=== PATIENT | female | born 1960 | race Caucasian/White ===

== ENCOUNTER 2022-01-30 09:31 | Inpatient (IN) | payer MEDICARE ==
[~2022-01-30] VITALS: Ht 157.5 cm; Wt 106.8 kg
[2022-01-30 10:01] LABS: BASO # 0.1 K/mm3 (0.0-0.2); BASO % 0.3 % (0.0-2.0); EOS % 0.3 % (0.0-4.0); GRAN % 78.5 % (42.2-75.2); HEMATOCRIT 51.5 % (37.0-47.0); LYMPH # 2.1 K/mm3 (1.2-3.4); LYMPH % 13.8 % (20.0-51.0); MEAN CELL VOLUME 97 fl (80.0-100.0); MEAN CORPUSCULAR HEMOGLOBIN 32 pg (27-31); MEAN CORPUSCULAR HGB CONC 33 g/dl (33.0-37.0); MEAN PLATELET VOLUME 9.5 fl (7.4-10.4); MONO % 6.5 % (1.7-9.3); PLATELET COUNT 242 K/mm3 (130-400); REDCELL DISTRIBUTION WIDTH-CV 13.5 % (11.5-14.5)
[2022-01-30 10:15] LABS: ANION GAP 13 mmol/L (7-16); BLOOD UREA NITROGEN 23 mg/dL (10-20); CALCIUM 9.4 mg/dL (8.4-10.2); CARBON DIOXIDE 30 mmol/L (23-31); CHLORIDE 92 mmol/L (98-107); CREATININE, serum 0.98 mg/dL (0.57-1.11); GLUCOSE 145 mg/dL (70-99); POTASSIUM 3.4 mmol/L (3.5-4.5); SODIUM 135 mmol/L (136-145)
[2022-01-30 10:30] LABS: TROPONIN-I < 0.010 ng/mL (0.00-0.033)
[2022-01-30 16:30] VITALS: BP 126/62; PULSE 78
--- NOTE | 2022-01-30 16:30 | NUR ---
PATIENT ARRIVED FROM ER BY WHEELCHAIR. AMBULATED TO BED WITH PITO CANES. PLESANT, NO COMPLAINTS OF PAIN. ADMISSION ASSESSMENT COMPLETED, MED REC COMPLETED, COVID AND INFECTIOUS DISEASE PROFILE COMPLETED. PATIENT RESTING COMFORTABLY IN BED.
[2022-01-30] MEDS ORDERED: PROZAC 20MG20 MG PO (16:33)
[2022-01-30] MEDS ORDERED: HYDRODIURIL50 MG PO (16:34)
[2022-01-30] MEDS ORDERED: COLESTID 1GM1 G PO (16:36)
[2022-01-30] MEDS ORDERED: MOBIC15 MG PO (16:37)
[2022-01-30] MEDS ORDERED: NORCO 325 MG-101 TAB PO (16:38)
[2022-01-30] MEDS ORDERED: ROBAXIN 50500 MG/TAB PO (16:41)
[2022-01-30] MEDS ORDERED: ASPIRIN E.C. 8181 MG PO (16:42)
[2022-01-30] MEDS ORDERED: RT ADVAIR 228 DISKUS IH (16:46)
[2022-01-30] MEDS ORDERED: COMBIRESP IH (16:50)
--- NOTE | 2022-01-30 17:07 | NUR ---
PATIENT DRESSED AND PLACED ON HOME O2 BOTTLE AT 3L. LEFT FACILITY, REVIEWED LABS, SAW BLOOD SUGAR WAS 53, NOTIFIED PATIENT SON (WHO IS TRANSPORTING PATIENT TO [facility]), PATIENT INSTRUCTED AND AGREED TO STOP FOR DINNER ON THE WAY TO [facility].
--- NOTE | 2022-01-30 18:26 | NUR ---
1800 PLACED 20G IN LEFT FOREARM, REMOVED RIGHT AC. PATIENT ORDERED DINNER. CANES, CALLBELL, AND PHONE BEDSIDE. RESTING PEACEFULLY.
[2022-01-30 19:45] VITALS: BP 127/44; PULSE 91; TEMP 98.9
[2022-01-30 22:17] LABS: PH 5 (5-8); URINE APPEARANCE Hazy (CLEAR/HAZY); URINE BACTERIA None Seen /hpf (NONE SEEN); URINE BILIRUBIN Negative (NEGATIVE); URINE BLOOD 1+ (NEGATIVE); URINE COLOR Yellow (YELLOW); URINE GLUCOSE Negative (NEGATIVE); URINE KETONE Negative (NEGATIVE); URINE LEUKOCYTE ESTERASE Negative (NEGATIVE); URINE NITRATE Negative (NEGATIVE); URINE PROTEIN(semi-quant) Negative (NEGATIVE); URINE RBC 0-2 /hpf (0-2); URINE UROBILINOGEN Negative (NEGATIVE)
[2022-01-30 22:44] LABS: COLLECTION METHOD CLEAN CATCH
[2022-01-31] VITALS (7 sets, daily range): BP systolic 105–150; BP diastolic 45–97; PULSE 71–102; TEMP 97.4–98.6
--- NOTE | 2022-01-31 04:39 | NUR ---
PT HAD UNEVENTFUL NIGHT THIS SHIFT, PT VSS, 02 REMAINS 4L NC, MEDICATIONS ADMINISTERED ORDERED. ALL NEEDS ME THIS SHIFT. CALL LIGHT WTIHIN REACH.
[2022-01-31 06:19] LABS: BASO % 0.1 % (0.0-2.0); GRAN # 13.5 K/mm3 (1.4-6.5); GRAN % 87.8 % (42.2-75.2); HEMATOCRIT 43.3 % (37.0-47.0); LYMPH # 1.2 K/mm3 (1.2-3.4); LYMPH % 7.7 % (20.0-51.0); MEAN CELL VOLUME 95 fl (80.0-100.0); MEAN CORPUSCULAR HEMOGLOBIN 32 pg (27-31); MEAN CORPUSCULAR HGB CONC 34 g/dl (33.0-37.0); MEAN PLATELET VOLUME 10.1 fl (7.4-10.4); MONO # 0.6 K/mm3 (0.1-0.6); MONO % 3.6 % (1.7-9.3); PLATELET COUNT 219 K/mm3 (130-400); RED BLOOD COUNT 4.54 M/mm3 (4.10-5.30); REDCELL DISTRIBUTION WIDTH-CV 13.2 % (11.5-14.5)
[2022-01-31 06:38] LABS: HEMOGLOBIN 14.7 g/dl (12.5-16.0)
[2022-01-31 06:52] LABS: CALCIUM 8.9 mg/dL (8.4-10.2); CREATININE, serum 0.83 mg/dL (0.57-1.11); MAGNESIUM 2.1 mg/dL (1.6-2.6)
--- NOTE | 2022-01-31 08:39 | NUR ---
Scheduled medications given. Shift assessment performed. Patient currently requiring 4.5 L of O2 via nasal cannula. Dyspnea upon exertion noted. Patient denies any pain, discomfort, SOA, or further needs at this time. VSS. Patient A&O. Call light in reach.
--- NOTE | 2022-01-31 14:26 | NUR ---
CHERYL met with the pt to complete intake. The pt lives at home with spouse, Jose, [phone]. The pt is independent on all ADLS, but does use a cane and neblizer. The pt pcp is Dr. Vargas and sharon alba from [facility]. The pt does not have a DPOA-HC and is not interested in one at this time. DC: Home
--- NOTE | 2022-01-31 15:39 | NUR ---
PRN medication given for aching "bottom" pain rated an 8/10.
--- NOTE | 2022-01-31 18:17 | NUR ---
Patient has had an ok day. VSS. Patient A&O. States that the pain in her bottom is at a manaeagble level at this time. Currently on RA. Patient denies any further pain, discomfort, SOA, or further needs at this time. Call light in reach.
[2022-02-01 04:00] VITALS: BP 137/58; PULSE 70; TEMP 98.1
--- NOTE | 2022-02-01 05:36 | NUR ---
PT HAD UNEVENTFUL NIGHT THIS SHIFT. PT REMAINS ON . 02 SATURATIONS ABOVE 92 PERCENT. LUNGS REMAINS DIMINISHED. ALL NEEDS MET THIS SHIFT. CALL LIGHT WITHIN REACH.
[2022-02-01 06:13] LABS: BASO % 0.1 % (0.0-2.0); GRAN # 15.2 K/mm3 (1.4-6.5); GRAN % 83.4 % (42.2-75.2); HEMATOCRIT 44.3 % (37.0-47.0); HEMOGLOBIN 15.1 g/dl (12.5-16.0); LYMPH # 1.8 K/mm3 (1.2-3.4); LYMPH % 9.7 % (20.0-51.0); MEAN CELL VOLUME 95 fl (80.0-100.0); MEAN CORPUSCULAR HEMOGLOBIN 32 pg (27-31); MEAN CORPUSCULAR HGB CONC 34 g/dl (33.0-37.0); MONO % 5.7 % (1.7-9.3); PLATELET COUNT 258 K/mm3 (130-400); RED BLOOD COUNT 4.69 M/mm3 (4.10-5.30); REDCELL DISTRIBUTION WIDTH-CV 13.1 % (11.5-14.5)
[2022-02-01 06:33] LABS: CALCIUM 8.7 mg/dL (8.4-10.2); CREATININE, serum 0.79 mg/dL (0.57-1.11); POTASSIUM 4.2 mmol/L (3.5-4.5)
[2022-02-01 07:12] VITALS: BP 143/75; PULSE 86; TEMP 98.3
[2022-02-01] MEDS ORDERED: MUCINEX 60600 MG/TA1 PO (10:11)
[2022-02-01] MEDS ORDERED: PREDNISONE20 MG PO (10:13)
[2022-02-01] MEDS ORDERED: OXYGEN (10:32)
--- NOTE | 2022-02-01 10:34 | NUR ---
PT RESTING IN BED. MORNING MEDICATIONS GIVEN. SHIFT ASSESSMENT COMPLETED. PT DENIES ANY PAIN OR SOB AT REST. CURRENTLY ON ROOM AIR WHEN RESTING. UPDATED ON POC. WILL CONTINUE TO MONITOR.
--- NOTE | 2022-02-01 11:09 | NUR ---
SW informed that patient would be DCing to her home on this day and would need assistance with setting up O2 at her home. SW spoke to patient and patient chose [facility] to obtain oxygen services. Documentation faxed to agency, [employer]eles[employer] representative stated he would be bringing up oxygen needed for patient.
--- NOTE | 2022-02-01 12:04 | NUR ---
DISCHARGE INSTRUCTIONS GIVEN. ALL QUESTIONS ANSWERED. D/C IV. PT DRESSED AND PACKED BELONGINGS. WAITING FOR HOME OXYGEN TO ARRIVE BEFORE DISCHARGING.
--- NOTE | 2022-02-01 13:03 | NUR ---
PT ESCORTED OFF OF UNIT. WILL D/C FROM SYSTEM.
== END 2022-02-01 13:03 | disposition home or self-care (01) | DRG 189 ==
LOC: COL.ER 09:31 → MEDICAL 13:39
PROVIDERS: Emergency Medicine; Physician Assistant; ADMIT Internal Medicine
DX: J96.01 Acute respiratory failure with hypoxia (principal); J44.1 Chronic obstructive pulmonary disease with (acute) exacerbation; J44.0 Chronic obstructive pulmonary disease with (acute) lower respiratory infection; F17.210 Nicotine dependence, cigarettes, uncomplicated; M81.0 Age-related osteoporosis without current pathological fracture; I10 Essential (primary) hypertension; F32.A Depression, unspecified; J20.9 Acute bronchitis, unspecified; E87.6 Hypokalemia
CPT/HCPCS: 99222-AI; 99232-AI; 99238; A9284; J0696; J1650; J2405; J2920; J7512; Q9967

== ENCOUNTER → 2022-07-27 | Outpatient (CLI) | payer MEDICARE ==
[~2022-07-27] MED LIST: ASPIRIN E.C. 8181 MG PO; COLESTID 1GM1 G PO; COMBIRESP IH; HYDRODIURIL50 MG PO; MOBIC15 MG PO; MUCINEX 60600 MG/TA1 PO; NORCO 325 MG-101 TAB PO; OXYGEN; PREDNISONE20 MG PO; PROZAC 20MG20 MG PO; ROBAXIN 50500 MG/TAB PO; RT ADVAIR 228 DISKUS IH
== END ==
LOC: COL.RAD 07-21 08:00
DX: M25.552 Pain in left hip (principal)
CPT/HCPCS: J3301; Q9967

== ENCOUNTER 2023-12-22 13:30 | Inpatient (IN) | payer OTHER, MEDICAID ==
[~2023-12-22] VITALS: Ht 157.5 cm; Wt 115.0 kg
[~2023-12-22 13:30] MED LIST changes: +ASPIRIN 81M81 MG/TA2 PO; +BREZTRI AEROS10.7 GM IH; +GLUCOPHAGE XR500 M1 PO; +LIPITOR20 MG PO; +LYRICA225 MG PO; +NORCO 325 MG-51 TAB PO; +NORVASC 5MG5 MG/TAB PO; +OMNICEF 300MG300 MG PO; +PROZAC40 MG PO; +RYBELSUS7 MG PO; +VITAMIND3 5000 PO
[2023-12-22] MEDS ORDERED: NS 500 ML IV ONE (13:45)
[2023-12-22 13:56] LABS: BASO # 0.1 K/mm3 (0.0-0.2); BASO % 0.5 % (0.0-2.0); EOS % 0.1 % (0.0-4.0); GRAN # 8.8 K/mm3 (1.4-6.5); GRAN % 81.5 % (42.2-75.2); HEMOGLOBIN 15.4 g/dl (12.5-16.0); LYMPH # 0.9 K/mm3 (1.2-3.4); LYMPH % 8.2 % (20.0-51.0); MEAN CELL VOLUME 100 fl (80.0-100.0); MEAN CORPUSCULAR HEMOGLOBIN 31 pg (27-31); MEAN CORPUSCULAR HGB CONC 31 g/dl (33.0-37.0); MEAN PLATELET VOLUME 10.4 fl (7.4-10.4); MONO % 9.4 % (1.7-9.3); PLATELET COUNT 176 K/mm3 (130-400); REDCELL DISTRIBUTION WIDTH-CV 14.2 % (11.5-14.5)
[2023-12-22 14:15] LABS: ALBUMIN 3.8 gm/dL (3.4-4.8); BILIRUBIN,TOTAL 0.8 mg/dL (0.2-1.2); C-REACTIVE PROTEIN 3.85 mg/dL (0.00-0.50); CALCIUM 9.8 mg/dL (8.4-10.2); CREATININE, serum 0.95 mg/dL (0.57-1.11); POTASSIUM 4.5 mmol/L (3.5-4.5); TOTAL PROTEIN 7.2 gm/dL (6.2-8.1)
[2023-12-22] MEDS ORDERED: Pantoprazole 40 MG in NS 10 ML IV ONE (14:45)
[2023-12-22] MEDS ORDERED: Famotidine 20 MG TAB PO ONE (14:45)
[2023-12-22] MEDS ORDERED: Albuterol 0.083% Neb Soln 2.5 MG/3 ML UD IH ONE (15:00)
[2023-12-22] MEDS ORDERED: Oseltamivir 75 MG CAP PO SCH (15:10)
[2023-12-22] MEDS ORDERED: Budesonide/Glycopyrrolate/Formoterol **** subs to Budesonide + Umeclid/Vilant IH SCH (15:12)
[2023-12-22] MEDS ORDERED: Polyethylene Glycol 3350 17 GM PDS PO PRN (15:15)
[2023-12-22] MEDS ORDERED: Acetaminophen 500 MG TAB PO PRN (15:15)
[2023-12-22] MEDS ORDERED: Ondansetron 4 MG/2 ML VIAL IV PRN (15:15)
[2023-12-22] MEDS ORDERED: HYDROcodone/Acetaminophen 10-325 MG TAB PO PRN (15:15)
[2023-12-22] MEDS ORDERED: Docusate Sodium 100 MG CAP PO PRN (15:15)
[2023-12-22] MEDS ORDERED: dexAMETHasone 4 MG/ML VIAL IV SCH (15:15)
[2023-12-22] MEDS ORDERED: COZAAR 25MG25 MG/TAB PO (15:33)
[2023-12-22] MEDS ORDERED: Dextrose 50% Water 25 GM/50 ML SYRINGE IV PRN (16:15)
[2023-12-22] MEDS ORDERED: Dextrose (Glucose) 15 GM (4 x 3.75 GM) Chewable TABLET PACK PO PRN (16:15)
[2023-12-22] MEDS ORDERED: Glucagon 1 MG VIAL IM PRN (16:15)
[2023-12-22 16:44] VITALS: BP 128/47; PULSE 91; TEMP 100.2
[2023-12-22] MEDS ORDERED: Insulin Aspart (NovoLOG) SQ SCH (17:00)
--- NOTE | 2023-12-22 17:02 | NUR ---
Patient arrived to the medical unit, alert and oriented x 4, getting 2 L o2 Oxymasc. Reporst she has a headache, runnynose, SOB and nausea. Pt was brought by bed, she transfer herself to the bed in the room. Assessment intake completed.
[2023-12-22 17:32] VITALS: BP_SYST 128
[2023-12-22 17:48] LABS: URINE APPEARANCE CLEAR (CLEAR/HAZY); URINE BLOOD NEGATIVE (NEGATIVE); URINE COLOR YELLOW (YELLOW); URINE GLUCOSE NEGATIVE (NEGATIVE); URINE KETONE TRACE (NEGATIVE); URINE NITRATE NEGATIVE (NEGATIVE); URINE PROTEIN(semi-quant) NEGATIVE (NEGATIVE)
[2023-12-22 17:56] LABS: COLLECTION METHOD CLEAN CATCH
--- NOTE | 2023-12-22 18:52 | NUR ---
Report given to SIMEON Flores.
[2023-12-22] MEDS ORDERED: Budesonide Neb Susp 0.5 MG/2 ML AMP IH SCH (19:00)
[2023-12-22 19:19] VITALS: BP 128/60; PULSE 85; TEMP 98.8
--- NOTE | 2023-12-22 19:28 | NUR ---
PT FOUND ON RA SATTING MID 70S TO LOW 80S WITH OXYMASK SITTING LAYING BY PT'S HEAD. PT STATED THAT SHE "TOOK THE MASK OFF BECAUSE IT WAS WET. 3LPM VIA NC PLACED, PT NOW SATTING 92%.
[2023-12-22] MEDS ORDERED: Albuterol/Ipratropium 3 MG-0.5 MG/3 ML Neb Soln IH SCH (20:00)
[2023-12-22 20:10] VITALS: BP_SYST 128
--- NOTE | 2023-12-22 20:38 | NUR ---
Patient assessed around 2009. Alert and oriented, and able to make needs known. Denies having pain and discomfort. Peripheral INT to left forearm. RT reported that patient had taken her oxymask off, and was at 70s-80s on room air. Placed on oxygen at 3 L/min via NC. Asked patient about why she had taken off OM, and stated it was because it was making her hair wet. Patient did have a fever earlier and was given APAP, and fever broke. Explained to patient that was most likely why it was wet, she was sweating. Voices no questions, needs, or concerns at this time. In bed with call light within reach. High fall risk precautions in place. Bed alarm on.
[2023-12-22] MEDS ORDERED: Famotidine 20 MG TAB PO SCH (21:00)
[2023-12-22 23:20] VITALS: BP 155/86; PULSE 84; TEMP 98.8
[2023-12-23] VITALS (12 sets, daily range): BP systolic 97–160; BP diastolic 47–78; PULSE 64–81; TEMP 98.1–99.4
--- NOTE | 2023-12-23 05:35 | NUR ---
Continues on oxygen at 3 L/min via NC. Reports breathing is much better. Afebrile this shift. Voices no questions, needs, or concerns at this time. In bed with call light within reach. High fall risk precautions in place. Bed alarm on.
[2023-12-23 06:45] LABS: BASO % 0.4 % (0.0-2.0); GRAN # 6.2 K/mm3 (1.4-6.5); GRAN % 83.7 % (42.2-75.2); HEMATOCRIT 48.2 % (37.0-47.0); HEMOGLOBIN 15.2 g/dl (12.5-16.0); LYMPH # 0.6 K/mm3 (1.2-3.4); LYMPH % 8.7 % (20.0-51.0); MEAN CELL VOLUME 97 fl (80.0-100.0); MEAN CORPUSCULAR HEMOGLOBIN 31 pg (27-31); MEAN CORPUSCULAR HGB CONC 32 g/dl (33.0-37.0); MEAN PLATELET VOLUME 10.4 fl (7.4-10.4); MONO # 0.5 K/mm3 (0.1-0.6); MONO % 6.9 % (1.7-9.3); PLATELET COUNT 161 K/mm3 (130-400); RED BLOOD COUNT 4.99 M/mm3 (4.10-5.30); REDCELL DISTRIBUTION WIDTH-CV 13.9 % (11.5-14.5)
[2023-12-23 07:03] LABS: CALCIUM 9.4 mg/dL (8.4-10.2); CREATININE, serum 0.87 mg/dL (0.57-1.11); POTASSIUM 4.8 mmol/L (3.5-4.5)
[2023-12-23] MEDS ORDERED: Atorvastatin 20 MG TAB PO SCH (09:00)
[2023-12-23] MEDS ORDERED: Pregabalin 75 MG CAP PO SCH (09:00)
[2023-12-23] MEDS ORDERED: Umeclidinium/Vilanterol 62.5-25 MCG INHALATION/INHALER IH SCH (09:00)
[2023-12-23] MEDS ORDERED: amLODIPine 5 MG TAB PO SCH (09:00)
[2023-12-23] MEDS ORDERED: Losartan 25 MG TAB PO SCH (09:00)
[2023-12-23] MEDS ORDERED: FLUoxetine 20 MG CAP PO SCH (09:00)
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
--- NOTE | 2023-12-23 14:11 | NUR ---
Jun[employer] Teacher received email correspondence from patient's case Eliana patel who advised patient is on the physical disability waiver and has in home services through [facility]. Eliana advised she was told by [facility] they recently hired a new caregiver who will start with patient next week.
--- NOTE | 2023-12-23 20:53 | NUR ---
Patient assessed around 2009. Alert and oriented, and able to make needs known. Denies having pain and discomfort. Had taken shower. Was on room air during assessment. SPO2 85%. Put back on oxygen at 2 L/min via NC. Increased to 88%. Increased oxygen at 3 L/min via NC. RT updated. Denies SOB and dyspnea. Non-productive cough. LS expiratory wheezes. HRR. BSAx4. Peripheral INT to left forearm. Voices no questions, needs, or concenrs at this time. In bed with call light within reach. High fall risk precautions in place. Bed alarm on. Droplet precautions continue.
[2023-12-24] VITALS (12 sets, daily range): BP systolic 104–161; BP diastolic 48–65; PULSE 57–77; TEMP 97.8–98.8
[2023-12-24] MEDS ORDERED: guaiFENesin Oral Soln 200 MG/10 ML UD PO PRN (02:00)
--- NOTE | 2023-12-24 05:43 | NUR ---
Continues on oxygen at 3 L/min via NC. Complained of cough during the night. Called [facility], new order received for Robitussin, and given per orders. No further complaints at this time. In bed with call light within reach. High fall risk precautions in place. Bed alarm on.
[2023-12-24 06:37] LABS: BASO % 0.1 % (0.0-2.0); GRAN # 6.1 K/mm3 (1.4-6.5); GRAN % 81.8 % (42.2-75.2); HEMATOCRIT 47.7 % (37.0-47.0); HEMOGLOBIN 15.3 g/dl (12.5-16.0); LYMPH # 0.8 K/mm3 (1.2-3.4); LYMPH % 10.9 % (20.0-51.0); MEAN CELL VOLUME 95 fl (80.0-100.0); MEAN CORPUSCULAR HEMOGLOBIN 31 pg (27-31); MEAN CORPUSCULAR HGB CONC 32 g/dl (33.0-37.0); MEAN PLATELET VOLUME 10.2 fl (7.4-10.4); MONO # 0.5 K/mm3 (0.1-0.6); MONO % 6.9 % (1.7-9.3); PLATELET COUNT 179 K/mm3 (130-400); RED BLOOD COUNT 5.01 M/mm3 (4.10-5.30); REDCELL DISTRIBUTION WIDTH-CV 13.8 % (11.5-14.5)
[2023-12-24 06:54] LABS: CALCIUM 9.5 mg/dL (8.4-10.2); CREATININE, serum 1.06 mg/dL (0.57-1.11); POTASSIUM 4.8 mmol/L (3.5-4.5)
--- NOTE | 2023-12-24 13:03 | NUR ---
Social Work student Sharmila faxed Home Health referral to [facility]. Discharge Plan: Home with HH
--- NOTE | 2023-12-24 14:00 | NUR ---
dimension mill worker was notified patient would like to speak with her. CHERYL and CHERYL Student met with patient. Patient expressed she was wanting a walker and briefs when she returns home. CHERYL discussed home health services. Patient reviewed Medicare.gov list and would like [facility]. SW faxed [facility] referarl. SW was notified that [facility] is unable to accept patietn due to her insurance. CHERYL contacted patient and second choice is [facility]. [facility] expressed [facility] are in network with [facility]. CHERYL secure emailed the home health referral. Discharge plan: Home with home health
--- NOTE | 2023-12-24 15:39 | NUR ---
refractory worker was notified [facility] is able to accept patient for Home Health. SW was notified patient wanted to complete a DPOA-HC. SW assisted patient with completing the form. Patient appointed Luiza as primary and Judie as the secondary. CHERYL and RN witnessed patient's signature. SW made a copy and placed it in the chart. SW provided several copies and original to patient. CHERYL secure emailed FWW to home medical. Discharge plan: Home with [facility]
[2023-12-25 00:05] VITALS: BP_SYST 135
[2023-12-25 03:44] VITALS: BP 120/60; PULSE 63; TEMP 98.3
[2023-12-25 04:05] VITALS: BP_SYST 120
[2023-12-25 06:39] LABS: GRAN # 7.7 K/mm3 (1.4-6.5); GRAN % 84.2 % (42.2-75.2); HEMOGLOBIN 15.2 g/dl (12.5-16.0); LYMPH # 0.8 K/mm3 (1.2-3.4); LYMPH % 9.2 % (20.0-51.0); MEAN CELL VOLUME 95 fl (80.0-100.0); MEAN CORPUSCULAR HEMOGLOBIN 31 pg (27-31); MEAN CORPUSCULAR HGB CONC 33 g/dl (33.0-37.0); MEAN PLATELET VOLUME 10.8 fl (7.4-10.4); MONO # 0.6 K/mm3 (0.1-0.6); MONO % 6.2 % (1.7-9.3); PLATELET COUNT 179 K/mm3 (130-400); RED BLOOD COUNT 4.86 M/mm3 (4.10-5.30); REDCELL DISTRIBUTION WIDTH-CV 13.7 % (11.5-14.5)
[2023-12-25 06:57] LABS: CALCIUM 9.2 mg/dL (8.4-10.2); CREATININE, serum 0.9 mg/dL (0.57-1.11); POTASSIUM 4.7 mmol/L (3.5-4.5)
[2023-12-25 07:12] VITALS: BP 131/59; PULSE 67; TEMP 98.1
[2023-12-25 09:16] VITALS: BP_SYST 131
[2023-12-25] MEDS ORDERED: TAMIFLU 75MG75 MG PO (09:57)
[2023-12-25] MEDS ORDERED: MEDROL 4MG DOSPA4 MG PO (09:58)
[2023-12-25] MEDS ORDERED: OXYGEN (09:58)
[2023-12-25] MEDS ORDERED: TESSALON P100 MG/CAP PO (09:59)
[2023-12-25] MEDS ORDERED: COMBIRESP IH (09:59)
--- NOTE | 2023-12-25 10:30 | NUR ---
PATIENT RECEIVED DISCHARGE INSTRUCTIONS INCLUDING FOLLOW UP APPOINTMENTSN AND NEW MEDICATIONS. PATIENT ACKNOWLEDGED UNDERSTANDING VERBALLY. IV DISCONTINUED LFA. PATIENT WAITING FOR DAUGHTER TO PICK HER UP.
--- NOTE | 2023-12-25 10:41 | NUR ---
[employer] Technical Lead met with patient to discuss FWW. CHERYL advised that per [facility], a FWW will not be covered by Medicare as she got a rollator through her Medicare recently. Patient verbalized understanding. CHERYL advised she could private pay for one, but patient did not want to do this. Patient will be discharged home today. CHERYL contacted John at [facility] and faxed discharge orders. Discharge Plan; Home with [facility] today
--- NOTE | 2023-12-25 11:30 | NUR ---
PATIENT WAS DISCHARGED WITH NURSING STAFF/ TRANSPORTED VIA WHEELCHAIR.
== END 2023-12-25 11:30 | disposition home health service (06) | DRG 193 ==
LOC: COL.ER 13:30 → MEDICAL 15:09
PROVIDERS: Emergency Medicine; ADMIT Internal Medicine
DX: J10.1 Influenza due to other identified influenza virus with other respiratory manifestations (principal); J96.21 Acute and chronic respiratory failure with hypoxia; J44.1 Chronic obstructive pulmonary disease with (acute) exacerbation; Z68.42 Body mass index [BMI] 45.0-49.9, adult; Z96.642 Presence of left artificial hip joint; Z20.822 Contact with and (suspected) exposure to COVID-19; M19.90 Unspecified osteoarthritis, unspecified site; F17.210 Nicotine dependence, cigarettes, uncomplicated; E78.5 Hyperlipidemia, unspecified; F32.A Depression, unspecified; E66.01 Morbid (severe) obesity due to excess calories; G89.29 Other chronic pain; E11.40 Type 2 diabetes mellitus with diabetic neuropathy, unspecified; I10 Essential (primary) hypertension; Z90.710 Acquired absence of both cervix and uterus; Z90.49 Acquired absence of other specified parts of digestive tract; Z99.81 Dependence on supplemental oxygen; Z79.899 Other long term (current) drug therapy; Z79.82 Long term (current) use of aspirin; Z23 Encounter for immunization
CPT/HCPCS: C9113; J1100; J1650; J7040